=== PATIENT | female | born 1990 | race Two or more races ===

== ENCOUNTER 2016-07-21 20:14 | Emergency (ER) | payer MEDICAID, OTHER ==
[~2016-07-21] VITALS: Ht 162.6 cm; Wt 69.4 kg
[2016-07-21 21:19] VITALS: BP 105/68
[2016-07-21 21:41] LABS: Basophils # (auto) 0 uL; Basophils % (auto) 0.3 % (0.0-2.0); Eosinophils # (auto) 0.2 uL; Eosinophils % (auto) 3.1 % (0.0-7.0); Hematocrit 34.9 % (36.0-46.0); Hemoglobin 11.4 g/dL (12.2-16.2); Lymphocytes # (auto) 1.9 uL; Lymphocytes % (auto) 23.4 % (10.0-50.0); Mean Corpuscular Hemoglobin 27.3 pg (28.0-32.0); Mean Corpuscular Hgb Conc. 32.7 g/dL (32.0-36.0); Mean Corpuscular Volume 83.3 fL (80.0-100.0); Mean Platelet Volume 6.6 fL (7.4-10.4); Monocytes # (auto) 0.5 uL; Monocytes % (auto) 6.7 % (0.0-12.0); Neutrophils # (auto) 5.3 uL; Neutrophils % (auto) 66.5 % (37.0-80.0); Platelet Count (auto) 302 10^3/uL (140-450); Red Cell Distribution Width 13.5 % (11.6-16.0)
[2016-07-21 21:52] LABS: INR 0.94 (0.9-1.15); Partial Thromboplastin Time 25.1 sec (22.64-33.71); Prothrombin Time 9.7 sec (9.37-12.3)
[2016-07-21 22:00] LABS: Albumin 2.8 g/dL (3.4-5.0); Potassium 3.8 mmol/L (3.5-5.1)
[2016-07-21 22:04] LABS: BUN/Creatinine Ratio 16.2; Calcium 8.1 mg/dL (8.5-10.1)
[2016-07-21 22:06] LABS: Bilirubin, Total 0.2 mg/dL (0.2-1.0); Total Protein 6.8 g/dL (6.4-8.2)
== END 2016-07-21 22:40 | disposition home or self-care (01) ==
LOC: ER 20:16
DX: O26.892 Other specified pregnancy related conditions, second trimester (principal); S30.0XXA Contusion of lower back and pelvis, initial encounter; R10.32 Left lower quadrant pain; W10.9XXA Fall (on) (from) unspecified stairs and steps, initial encounter; Y93.89 Activity, other specified; Y99.8 Other external cause status; Y92.89 Other specified places as the place of occurrence of the external cause; Z3A.17 17 weeks gestation of pregnancy
CPT/HCPCS: 36415; 76805; 80053; 84702; 85025; 85049; 85610; 85730

== ENCOUNTER 2018-03-07 11:24 | Emergency (ER) | payer MEDICAID ==
[~2018-03-07] VITALS: Ht 162.6 cm; Wt 62.6 kg
[2018-03-07 11:34] VITALS: BP 111/49
[2018-03-07 13:04] LABS: Urine Bacteria NONE SEEN /hpf (None Seen); Urine Blood 2+ /uL (Negative); Urine Mucus FEW (None Seen); Urine Specific Gravity 1.023 (1.001-1.035); Urine WBC 3 /hpf (0 - 5)
== END 2018-03-07 13:31 | disposition home or self-care (01) ==
LOC: ER 11:24
DX: N93.9 Abnormal uterine and vaginal bleeding, unspecified (principal); Z32.02 Encounter for pregnancy test, result negative
CPT/HCPCS: 36415; 81001; 84702

== ENCOUNTER 2018-12-16 15:30 | Inpatient (IN) | payer MEDICAID | END 2018-12-18 10:55 | disposition home or self-care (01) | LOC: LDRP 15:30 | PROC: 10E0XZZ Delivery of Products of Conception, External Approach (ICD-10-PCS; principal; ~2018-12-16) | PROC: 0HQ9XZZ Repair Perineum Skin, External Approach (ICD-10-PCS; ~2018-12-16) | PROC: 0KQM0ZZ Repair Perineum Muscle, Open Approach (ICD-10-PCS; ~2018-12-16) | DX: O42.90 Premature rupture of membranes, unspecified as to length of time between rupture and onset of labor, unspecified weeks of gestation (principal); Z37.0 Single live birth; Z3A.39 39 weeks gestation of pregnancy ==

== ENCOUNTER → 2020-09-29 | Outpatient (CLI) | payer MEDICAID ==
[~2020-09-29] MED LIST: PREN-96 PO
== END | disposition home or self-care (01) ==
LOC: Rad HDHVI 14:04
PROVIDERS: ATTEND Internal Medicine
DX: I08.8 Other rheumatic multiple valve diseases (principal); R07.89 Other chest pain
CPT/HCPCS: 93306

== ENCOUNTER → 2020-10-17 | Outpatient (CLI) | payer MEDICAID ==
[~2020-10-17] VITALS: Ht 162.6 cm; Wt 59.9 kg
== END | disposition home or self-care (01) ==
LOC: Rad HDHVI 08:23
PROVIDERS: ATTEND Internal Medicine
DX: I10 Essential (primary) hypertension (principal); R07.9 Chest pain, unspecified; Z82.49 Family history of ischemic heart disease and other diseases of the circulatory system
CPT/HCPCS: 93017

== ENCOUNTER 2024-04-30 11:54 | Observation (INO) | payer MEDICAID | END 2024-04-30 14:38 | disposition home or self-care (01) | LOC: LDRP 12:30 | PROVIDERS: ADMIT Obstetrics & Gynecology; ATTEND Obstetrics & Gynecology | DX: O69.81X0 Labor and delivery complicated by cord around neck, without compression, not applicable or unspecified (principal); Z3A.39 39 weeks gestation of pregnancy | CPT/HCPCS: 59025; 76818; 81002; G0378 ==

== ENCOUNTER 2024-05-04 10:08 | Inpatient (IN) | payer MEDICAID ==
[~2024-05-04] VITALS: Ht 162.6 cm; Wt 79.4 kg
[~2024-05-04 10:08] MED LIST changes: +BUTORPHANOL TARTRATE 2 MG/1 ML VIAL IV PRN; +LIDOCAINE 2%HCL (LOCAL ANESTH.) INJ 20ML MDV IJ PRN
[2024-05-04 10:55] LABS: Basophils # (auto) 0 10 ^3/uL (0-0.2); Basophils % (auto) 0.3 % (0.0-2.0); Eosinophils # (auto) 0.2 10 ^3/uL (0-0.8); Eosinophils % (auto) 4.8 % (0.0-7.0); Hematocrit 32.6 % (36.0-46.0); Hemoglobin 10.9 g/dL (12.2-16.2); Lymphocytes # (auto) 1.1 10 ^3/uL (0.4-5.4); Lymphocytes % (auto) 22.6 % (10.0-50.0); Mean Corpuscular Hemoglobin 27.1 pg (28.0-32.0); Mean Corpuscular Hgb Conc. 33.6 g/dL (32.0-36.0); Mean Corpuscular Volume 80.9 fL (80.0-100.0); Monocytes # (auto) 0.2 10 ^3/uL (0-1.3); Monocytes % (auto) 4.8 % (0.0-12.0); Neutrophils # (auto) 3.4 10 ^3/uL (1.6-8.6); Neutrophils % (auto) 67.5 % (37.0-80.0); Platelet Count (auto) 208 10^3/uL (140-450); Red Blood Cells 4.03 10^6/uL (4.0-5.20); Red Cell Distribution Width 14.5 % (11.8-14.3)
[2024-05-04 11:11] LABS: Alanine Aminotransferase 9 U/L (7-40); Albumin 3.6 g/dL (3.2-4.8); Alkaline Phosphatase 115 U/L (46-116); Anion Gap 7 (5-15); Aspartate Aminotransferase 14 U/L (13-40); BUN/Creatinine Ratio 10.4 (10.0-20.0); Bilirubin, Total 0.4 mg/dL (0.2-1.0); Blood Urea Nitrogen < 5 mg/dL (9-23); Calcium 8.7 mg/dL (8.7-10.4); Carbon Dioxide 22 mmol/L (20-31); Chloride 109 mmol/L (98-107); Glucose 92 mg/dL (74-106); Potassium 3.6 mmol/L (3.5-5.1); Sodium 138 mmol/L (136-145)
[2024-05-04 11:13] LABS: INR 0.92 (0.9-1.15); Partial Thromboplastin Time 23.9 SEC (24.5-34.5); Prothrombin Time 9.8 sec (9.3-11.8)
[2024-05-04 11:30] LABS: Urine Bacteria FEW /hpf (None Seen); Urine Blood Negative /uL (Negative); Urine Clarity Turbid (Clear); Urine Color Yellow (Yellow); Urine Mucus FEW (None Seen); Urine Protein, UAD TRACE (Negative); Urine Specific Gravity 1.022 (1.001-1.035); Urine Urobilinogen Normal (Negative); Urine WBC 99 /hpf (0 - 5)
[2024-05-04 11:56] LABS: Amphetamine Screen, Urine Neg (NEGATIVE); Barbiturate Scree,Urine Neg (NEGATIVE); Benzodiazephine Screen, Urine Neg (NEGATIVE); Cannabinoid Screen, Urine Neg (NEGATIVE); Cocaine Screen, Urine Neg (NEGATIVE); Opiate Scree,Urine Neg (NEGATIVE); Phencyclidine Screen, Urine Neg (NEGATIVE)
[2024-05-04] MEDS: miSOPROStol 50 MCG per PRE-CUT 1/2 TAB PO PRN (12:41)
[2024-05-04] MEDS: LACTATED RINGER'S 1,000 ML IV SCH (12:45)
--- NOTE | 2024-05-04 12:46 | DVHHP2 ---
OB CC & HPI Date Date of Admission: May 04, 2024 Patient Identification: : 5 Para: 3 EDC: May 02, 2024 EGA: 40.2wks Chief Complaints: Reason for admission: induction of labor Indication for induction: post dates (NCx1) History of Present Complaints 34yo IUP@40.2wks presents for scheduled IOL for post dates/NCx1 per Dr. Rangel Denies UCs/LOF/VB/DAMIAN/vision changes/RUQ pain. Endorses +FM. PNC: Routine PNC at [facility] OB, adequate visits, PNC uncomplicated. GTT wnl, dating based on LMP c/w 12wk sono, GBS positive. OB hx: x3, uncomplicated and SABx1 Past Medical History Cardiac: No pertinent Hx Pulmonary: Asthma (as a child, denies using an inhaler as an adult) Central Nervous System: No pertinent Hx GI: No pertinent Hx Hemotology/Oncology: No pertinent Hx Hepatobiliary: No pertinent Hx Psychiatric: No pertinent Hx Musculoskeletal: No pertinent Hx Rheumotologic: No pertinent Hx Infectious Disease: No peritnent Hx ENT: No pertinent Hx Renal/: No pertinent Hx Endocrine: No pertinent Hx Dermatology: No pertinent Hx Past Surgical History: No pertinent Hx OB History OB History Care: Good Care Ultrasounds: Normal mid trimester US Obstetrical Complications: None Medical Complications: None Allergies: Coded Allergies: NO KNOWN ALLERGIES (Unverified , 07/21/16) Allergies NKDA Home Meds Reported Medications Vit W/ Ferrous Fumara ( One Daily) Daily Tab, 1 TAB PO DAILY, #90 TAB 3 Refills 12/16/18 Home Meds PNV Current Medications Current Medications Medications (Trade) Dose Ordered Sig/Lele Route PRN Reason Start Time Stop Time Status Last Admin Lactated Ringer's 1,000 ml @ 125 mls/hr Q8H IV 05/04/24 10:00 05/04/24 12:45 Penicillin G Potassium [id number] units/Dextrose 50 ml @ 100 mls/hr Q4H IV 05/04/24 14:00 Angelita Ponce (T[place]monster) 1 pad PRN PRN TOP PERINEAL AREA DISCOMFORT 05/04/24 10:00 Sodium Lauryl Sulfate (Phisoderm) 240 ml PRN PRN TOP PERINEAL AREA DISCOMFORT 05/04/24 10:00 Benzocaine (Dermoplast) 1 applic PRN PRN TOP PERINEAL AREA DISCOMFORT 05/04/24 10:00 Butorphanol Tartrate (Stadol Injection) 1 mg Q4HPRN PRN IV MODERATE PAIN (4-6 PAIN SCALE) 05/04/24 10:00 Butorphanol Tartrate (Stadol Injection) 2 mg Q4HPRN PRN IV SEVERE PAIN (7-10 PAIN SCALE) 05/04/24 10:00 Misoprostol (Cytotec) 50 mcg Q4HPRN PRN PO CERVICAL RIPENING 05/04/24 10:00 05/04/24 12:41 Lidocaine HCl (Xylocaine) 20 ml ONCE PRN IJ PERINEAL AREA DISCOMFORT 05/04/24 10:00 Family & Social History Family/Social History Past Family/Social History: denies Blood Type: B+ Rubella: not immune RPR/VDRL: Negative GBS Status: Positive HBsAG: Negative Review of Systems Constitutional: No symptom reported Ears, Nose, & Throat: No symptom reported Eyes: No symptom reported Pulmonary/Respiratory: No symptom reported Cardiovascular: No symptom reported Gastrointestinal: No symptom reported Genitourinary: No symptom reported Musculoskeletal: No symptom reported Skin: No symptom reported Psychiatric: No symptom reported Endocrine: No symptom reported Hemotologic/Lymphatic: No symptom reported OB Admission Exam Physical Exam Vitals: VSS, see chart HEENT: TMs Normal, Fontanelles Normal, Nasal Mucosa Normal, Eyes non-injected, Oropharynx Normal, PERRLA, Moist Membranes, EOMI Heart: Rhythm Normal Lungs: Clear Abdomen: Gravid Extremities: Normal Reflexes: Normal Pelvic Exam: SVE by RN: 1/thick/high, vertex EFW by Kat: 3500g EFW via sono in OB office 2 weeks ago was 7lbs 10oz Membranes: Intact Heart Rate: 130's Accelerations: Accelerations Present Decelerations: No Decelerations Correction Variability: Average (6-25) Contractions on Admission: >10 Minutes Apart Intensity: Mild OB Plan Plan Admitting Diagnosis: induction of labor for post dates/NCx1 Plan: Induction Induction Methd: Misoprostol protocol Other Plan: A: 34yo IUP@40.2wks Induction of Labor Category I EFM Intact Membranes GBS positive Rubella Non-Immune P: Admit to L&D Informed consent obtained Discussed risks, benefits, alternatives of starting IOL with PO cytotec. Pt consents to IOL with PO cytotec. monitoring per order Routine labs ordered Pain mgmt PRN Frequent position changes in and out of bed encouraged Limit SVE unless necessary Intrauterine resuscitation PRN Anticipate CNM will consult with RUPESH Neves CNM May 04, 2024 12:46
[2024-05-04] MEDS ORDERED: PENICILLIN G POTASSIUM 2,500,000 UNITS in D5W 5% 50 ML IV SCH (14:00)
--- NOTE | 2024-05-04 17:43 | DVHPN2 ---
CNM Labor Progress Note Date and Time Seen Date Seen: May 04, 2024 Time Seen: 17:19 Subjective Patient reports: Feels worse Subjective Comment Pt consents to FB placement for cervical ripening. Objective Vital Signs VSS, see chart Monitoring Method Monitoring Method: External Heart Rate Heart Rate Baseline: 150 Heart Rate Variability: Moderate Presence of FHR Accelerations: Yes Presence of FHR Decelerations: No Are all 5 Components of the FH: Yes Contractions Contractions Frequency: Other (3 UCs in 10 minutes) Duration of Contraction: 80 Contractions Intensity: Moderate Contractions Resting Tone: Relaxed Membranes Membranes: Intact Vaginal Exam Vag Exam Deferred: No (FB placed for cervical ripening with 60ml NS) Vaginal Exam Dilation: 3 Vaginal Exam Effacement: 60 Vaginal Exam Station: -2 Vaginal Exam Presentation: VTX Vaginal Exam Show: Small Medications Medications - Pitocin: No Medications - Pain Medications: PRN Medication - Epidural: No Medication - Other cytotec PO x1 given thus far Lab Results Lab Results Vital Signs Date Time Temp Pulse Resp B/P (MAP) Pulse Ox O2 Delivery O2 Flow Rate FiO2 05/04/24 18:11 105/65 Current Medications Medications (Trade) Dose Ordered Sig/Lele Start Time Stop Time Status Last Admin Dose Admin Lactated Ringer's 1,000 ml @ 125 mls/hr Q8H 05/04/24 10:00 05/04/24 18:19 125 MLS/HR Penicillin G Potassium 50 ml @ 100 mls/hr ONCE ONCE 05/04/24 10:00 05/04/24 11:44 DC 05/04/24 19:05 100 MLS/HR Penicillin G Potassium [id number] units/Dextrose 50 ml @ 100 mls/hr Q4H 05/04/24 14:00 Angelita Ponce (Tucks) 1 pad PRN PRN 05/04/24 10:00 Sodium Lauryl Sulfate (Phisoderm) 240 ml PRN PRN 05/04/24 10:00 Benzocaine (Dermoplast) 1 applic PRN PRN 05/04/24 10:00 Butorphanol Tartrate (Stadol Injection) 1 mg Q4HPRN PRN 05/04/24 10:00 Butorphanol Tartrate (Stadol Injection) 2 mg Q4HPRN PRN 05/04/24 10:00 Misoprostol (Cytotec) 50 mcg Q4HPRN PRN 05/04/24 10:00 05/04/24 12:41 50 MCG Lidocaine HCl (Xylocaine) 20 ml ONCE PRN 05/04/24 10:00 Naloxone HCl (Narcan) 0.2 mg PRN ONCE 05/04/24 17:45 05/04/24 17:46 DC Ephedrine Sulfate (ePHEDrine SULFATE) 10 mg PRN ONCE 05/04/24 17:45 05/04/24 17:46 DC Fentanyl Citrate 100 mcg ONCE ONCE 05/04/24 17:45 05/04/24 17:46 DC 05/04/24 18:11 100 MCG Lactated Ringer's 1,000 ml @ 1,000 mls/hr Q1H ONCE 05/04/24 17:45 05/04/24 18:44 DC Ephedrine Sulfate (ePHEDrine SULFATE) 10 mg PRN ONCE 05/04/24 18:00 05/04/24 18:24 DC Fentanyl Citrate 100 mcg ONCE ONCE 05/04/24 18:00 05/04/24 18:24 DC Lidocaine/ Epinephrine (Xylocaine 1%-Mpf/ Epinephrine 1:200,000) 30 ml PRN ONCE 05/04/24 18:00 05/04/24 18:24 DC Naloxone HCl (Narcan) 0.2 mg PRN ONCE 05/04/24 18:00 05/04/24 18:27 DC Ephedrine Sulfate (ePHEDrine SULFATE) 10 mg PRN ONCE 05/04/24 18:00 05/04/24 18:24 DC Laboratory Tests Test 05/04/24 10:15 05/04/24 10:10 Range/Units White Blood Count 5.0 4.4-10.8 10^3/uL Red Blood Count 4.03 4.0-5.20 10^6/uL Hemoglobin 10.9 L 12.2-16.2 g/dL Hematocrit 32.6 L 36.0-46.0 % Mean Corpuscular Volume 80.9 80.0-100.0 fL Mean Corpuscular Hemoglobin 27.1 L 28.0-32.0 pg Mean Corpuscular Hemoglobin Concent 33.6 32.0-36.0 g/dL Red Cell Distribution Width 14.5 H 11.8-14.3 % Platelet Count 208 140-450 10^3/uL Mean Platelet Volume 6.8 L 6.9-10.8 fL Neutrophils (%) (Auto) 67.5 37.0-80.0 % Lymphocytes (%) (Auto) 22.6 10.0-50.0 % Monocytes (%) (Auto) 4.8 0.0-12.0 % Eosinophils (%) (Auto) 4.8 0.0-7.0 % Basophils (%) (Auto) 0.3 0.0-2.0 % Neutrophils # (Auto) 3.4 1.6-8.6 10 ^3/uL Lymphocytes # (Auto) 1.1 0.4-5.4 10 ^3/uL Monocytes # (Auto) 0.2 0-1.3 10 ^3/uL Eosinophils # (Auto) 0.2 0-0.8 10 ^3/uL Basophils # (Auto) 0 0-0.2 10 ^3/uL Nucleated Red Blood Cells 0.0 % Prothrombin Time 9.8 9.3-11.8 sec Prothrombin Time INR 0.92 0.9-1.15 Activated Partial Thromboplast Time 23.9 L 24.5-34.5 SEC Sodium Level 138 136-145 mmol/L Potassium Level 3.6 3.5-5.1 mmol/L Chloride Level 109 H 98-107 mmol/L Carbon Dioxide Level 22 20-31 mmol/L Anion Gap 7 5-15 Blood Urea Nitrogen < 5 L 9-23 mg/dL Creatinine 0.48 L 0.550-1.02 mg/dL Glomerular Filtration Rate Calc 127 >90 mL/min BUN/Creatinine Ratio 10.4 10.0-20.0 Serum Glucose 92 74-106 mg/dL Calcium Level 8.7 8.7-10.4 mg/dL Total Bilirubin 0.4 0.2-1.0 mg/dL Aspartate Amino Transferase (AST) 14 13-40 U/L Alanine Aminotransferase (ALT) 9 7-40 U/L Alkaline Phosphatase 115 46-116 U/L Total Protein 6.0 5.7-8.2 g/dL Albumin 3.6 3.2-4.8 g/dL Rapid Plasma Reagin Pending Treponema pallidum Ab (TP-PA) Pending Hepatitis B Surface Antigen Negative Negative Hepatitis C Antibody Negative Negative HIV (1&2) Antibody Negative Negative Urine Color Yellow Yellow Urine Clarity Turbid H Clear Urine pH 6.0 5.0-9.0 Urine Specific [place] 1.022 1.001-1.035 Urine Protein Trace H Negative Urine Ketones 1+ H Negative Urine Blood Negative Negative /uL Urine Nitrite Negative Negative Urine Bilirubin Negative Negative Urine Urobilinogen Normal Negative mg/dL Urine Leukocyte Esterase 3+ Negative /uL Urine RBC 3 0 - 4 /hpf Urine WBC 99 0 - 5 /hpf Urine Squamous Epithelial Cells Few <5 /hpf Urine Bacteria Few H None Seen /hpf Urine Mucus Few None Seen Urine Glucose Normal Normal mg/dL Urine Opiates Screen Neg NEGATIVE Urine Fentanyl Screen Neg NEGATIVE Urine Barbiturates Screen Neg NEGATIVE Urine Phencyclidine Screen Neg NEGATIVE Urine Amphetamines Screen Neg NEGATIVE Urine Benzodiazepines Screen Neg NEGATIVE Urine Cocaine Screen Neg NEGATIVE Urine Cannabinoids Screen Neg NEGATIVE Assessment Assessment 34yo IUP@40.2wks Induction of Labor Category I EFM Intact Membranes GBS positive Rubella Non-Immune Plan Plan RN is to apply traction to heredia balloon q1hr and notify CNM when it falls out. Start IV PCN for GBS treatment. monitoring per order Pain mgmt PRN Frequent position changes in and out of bed encouraged Limit SVE unless necessary Intrauterine resuscitation PRN Anticipate CNM will consult with Dr. Rangel PRN Plan discussed with: Patient RUPESH CROSS CNM May 04, 2024 17:43
[2024-05-04] MEDS ORDERED: NALOXONE HCL 0.4 MG/ML VIAL IV ONE ×3 (17:45→18:00)
[2024-05-04] MEDS ORDERED: LACTATED RINGER'S 1,000 ML IV ONE (17:45)
--- NOTE | 2024-05-04 17:48 | EPIDURAL ---
Anesthesia Procedural Note - Epidural Date: May 04, 2024 Informed consent obtained?: Yes Medication Administered: Fentanyl 100 mcg Medication Administered: ePHEDrine 5 mg IV Sterile prept drape: Yes Spinal level of insertion: L2-L3 Test dose of lidocaine & Epine: Negative Infusion started: Yes Start time: 17:39 End time: 18:35 STEWART ROD MD May 04, 2024 17:48
[2024-05-04] MEDS ORDERED: LIDOCAINE 1%-Mpf/Epinephrine 1:200,000 30ml VIAL IJ ONE (18:00)
[2024-05-04] MEDS ORDERED: fentaNYL CITRATE 100 MCG/2 ML VL IV ONE (18:00)
[2024-05-04] MEDS ORDERED: ePHEDrine SULFATE 50 MG/ML AMP IV ONE (18:00)
[2024-05-04] MEDS: fentaNYL CITRATE 100 MCG/2 ML VL IV ONE (18:11)
[2024-05-04] MEDS: LIDOCAINE HCL 2 %PF INJ 10ML AMP IJ ONE (18:13)
[2024-05-04] MEDS: ROPIVACAINE HCL 200 ML ONE (18:17)
[2024-05-04] MEDS: PENICILLIN G POT 5MIL/D5 50ML 50 ML IV ONE (19:05)
[2024-05-04] MEDS: ePHEDrine SULFATE 50 MG/ML AMP IV ONE ×2 (21:36→22:07)
[2024-05-04] MEDS: ONDANSETRON HCL 4 MG/2 ML VIAL IV PRN (21:37)
[2024-05-04] MEDS ORDERED: LACT. RINGERS/OXYTOCIN 20UNITS 500 ML IV ONE (23:00)
[2024-05-04] MEDS ORDERED: TERBUTALINE SULFATE 1 MG/ML 1ML VIAL SC PRN (23:00)
[2024-05-04] MEDS: OXYTOCIN 20 UNT in SODIUM CHLORIDE 0.9% 1,000 ML IV ONE (23:45)
--- NOTE | 2024-05-04 23:46 | LDN2 ---
Labor and Delivery Note Date 05/04/24 Age 34 5 Para now 4 AB sab x1 EDC 05/02/24 EGA 40.2wks Diagnosis IOL for post dates and NCx1 then Vaginal Delivery: VTX Vacuum Assisted: No Placenta: Spontaneous Sex: Female Weight pending Apgars 8/9 Nuchal Cord Present: Yes (loose NCx1) Nuchal Cord Transected: No Amniotic Fluid: Clear Anesthesia epidural Episiotomy: No Extension: No Lacerations: No Repaired with n/a EBL QBL 250ml Complications none Conditions stable Brim Raiser Somu Delivery Summary At 2307 this 34yo now delivered a viable Female by w/ APGARS 8/9. OSMAN with loose Nuchal x1 with cord reduced after . Infant placed skin to skin on pts chest. Intact 3-vessel cord circummarginate placenta delivered spontaneously, Garcia marginal cord insertion noted. Pitocin IV bolus started. Placenta sent to pathology. Cord clamped and cut after pulsation ceased. Cord blood not collected, maternal blood type B+. Patient had epidural anesthesia. Cervix/vagina inspected (intact) and intact perineum/labia. Fundus at U, firm, midline, and light lochia. QBL 250ml. VSS. Count correct x2. Patient to care and baby to couplet care, both stable. RUPESH CROSS CNM May 04, 2024 23:46
[2024-05-04] MEDS: LACT. RINGERS/OXYTOCIN 20UNITS 1,000 ML IV ONE (23:56)
[2024-05-05] MEDS: PHISODERM TOP SOLN 240ML BTL TOP PRN (00:23)
[2024-05-05] MEDS: DERMOPLAST 60ML BOTTLE TOP PRN (00:23)
[2024-05-05] MEDS: WITCH HAZEL-GLYCERIN PAD TOP PRN (00:23)
[2024-05-05] MEDS ORDERED: ONDANSETRON HCL 4 MG/2 ML VIAL IV PRN (00:45)
[2024-05-05] MEDS ORDERED: ACETAMINOPHEN 325 MG TAB PO PRN (00:45)
--- NOTE | 2024-05-05 01:00 | DVHPN2 ---
Progress Note Date Seen: May 05, 2024 Subjective S: Pt denies lightheaded/dizziness/pain, has not ambulated yet, due to void, vital signs Vital Sign Date Time Temp Pulse Resp B/P (MAP) Pulse Ox O2 Delivery O2 Flow Rate FiO2 05/04/24 18:11 105/65 medications Current Medications Medications Dose Ordered Sig/Lele Route Start Time Stop Time Status Last Admin Dose Admin Lactated Ringer's 1,000 ml @ 125 mls/hr Q8H IV 05/04/24 10:00 05/04/24 18:19 125 MLS/HR Penicillin G Potassium [id number] units/Dextrose 50 ml @ 100 mls/hr Q4H IV 05/04/24 14:00 Angelita Ponce 1 pad PRN PRN TOP 05/04/24 10:00 05/05/24 00:23 1 PAD Sodium Lauryl Sulfate 240 ml PRN PRN TOP 05/04/24 10:00 05/05/24 00:23 240 ML Benzocaine 1 applic PRN PRN TOP 05/04/24 10:00 05/05/24 00:23 1 APPLIC Butorphanol Tartrate 1 mg Q4HPRN PRN IV 05/04/24 10:00 Butorphanol Tartrate 2 mg Q4HPRN PRN IV 05/04/24 10:00 Misoprostol 50 mcg Q4HPRN PRN PO 05/04/24 10:00 05/04/24 12:41 50 MCG Lidocaine HCl 20 ml ONCE PRN IJ 05/04/24 10:00 Ondansetron HCl 4 mg Q4HPRN PRN IV 05/04/24 20:30 05/04/24 21:37 4 MG Terbutaline Sulfate 0.25 mg ONCE PRN SC 05/04/24 23:00 Acetaminophen 650 mg Q4HP PRN PO 05/05/24 00:45 Ondansetron HCl 4 mg Q4HP PRN IV 05/05/24 00:45 Docusate Sodium 200 mg HS PO 05/05/24 22:00 Ibuprofen 800 mg Q6HR PO 05/05/24 06:00 laboratory and microbiology Laboratory Tests 05/04/24 10:15 Test 05/04/24 10:15 Range/Units Serum Glucose 92 74-106 mg/dL Objective O: VSS Chest: heart sounds normal and lung sounds clear bilaterally Abd: soft, non-tender, fundus at U/firm/midline, active bowel sounds, no rebound or guarding Perineum: intact, no erythema/edema noted Ext: Non-tender, No edema, 2+ BLE DTRs Lochia: minimal See lab results Problems(with codes): (1) (normal spontaneous vaginal delivery) (2) Intact perineum Assessment/Plan A: 34yo now PPD#1 s/p P: Continue with routine PP care Plan discussed with: Patient RUPESH CROSS CN May 05, 2024 01:00
[2024-05-05 03:30] VITALS: BP 99/56; PULSE 82; RESP 16; TEMP 99.1; O2SAT 95
[2024-05-05] MEDS: ePHEDrine SULFATE 50 MG/ML AMP IV ONE (04:13)
[2024-05-05] MEDS: LACT. RINGERS/OXYTOCIN 20UNITS 500 ML IV ONE (04:14)
[2024-05-05 05:08] LABS: RPR Non Reactive (Non Reactive)
[2024-05-05] MEDS: IBUPROFEN 800 MG TAB PO SCH (05:32)
[2024-05-05 06:44] VITALS: BP 97/50; PULSE 67; RESP 16; TEMP 98.5; O2SAT 98
[2024-05-05 07:30] LABS: Basophils # (auto) 0 10 ^3/uL (0-0.2); Eosinophils # (auto) 0.1 10 ^3/uL (0-0.8); Lymphocytes # (auto) 1.1 10 ^3/uL (0.4-5.4); Mean Corpuscular Hgb Conc. 33.2 g/dL (32.0-36.0); Monocytes # (auto) 0.6 10 ^3/uL (0-1.3)
[2024-05-05 07:34] LABS: Basophils % (auto) 0.1 % (0.0-2.0); Eosinophils % (auto) 0.8 % (0.0-7.0); Hematocrit 31.8 % (36.0-46.0); Hemoglobin 10.5 g/dL (12.2-16.2); Lymphocytes % (auto) 12.9 % (10.0-50.0); Mean Corpuscular Hemoglobin 26.8 pg (28.0-32.0); Mean Corpuscular Volume 80.7 fL (80.0-100.0); Neutrophils # (auto) 6.6 10 ^3/uL (1.6-8.6); Neutrophils % (auto) 79.2 % (37.0-80.0); Platelet Count (auto) 177 10^3/uL (140-450); Red Blood Cells 3.94 10^6/uL (4.0-5.20); Red Cell Distribution Width 14.6 % (11.8-14.3); White Blood Cell 8.3 10^3/uL (4.4-10.8)
[2024-05-05 11:07] VITALS: BP 95/53; PULSE 75; RESP 17; TEMP 98.6; O2SAT 97
[2024-05-05 15:00] VITALS: BP 95/51; PULSE 71; RESP 16; TEMP 98.4; O2SAT 97
[2024-05-05 19:00] VITALS: BP 97/52; PULSE 78; RESP 16; RESP 52; TEMP 98.6; O2SAT 97
[2024-05-05] MEDS ORDERED: IBUP-1455 PO (20:48)
[2024-05-05] MEDS ORDERED: DOCU-265 PO (20:48)
[2024-05-05] MEDS ORDERED: FER325T PO (20:48)
[2024-05-05] MEDS: DOCUSATE SOD 100 MG CAP PO SCH (22:11)
[2024-05-05 23:00] VITALS: BP 96/55; PULSE 72; RESP 18; TEMP 97.8; O2SAT 97
[2024-05-06 03:00] VITALS: BP 93/55; PULSE 60; RESP 16; TEMP 97.6; O2SAT 96
--- NOTE | 2024-05-06 04:32 | DVHPN2 ---
Progress Note Date Seen: May 06, 2024 Subjective S: bleeding is less, eating food without issues, denies lightheaded/dizziness, pain well controlled with oral medications, no concerns with urinating, passing flatus, no BM yet, ambulating well, well vital signs Vital Sign Date Time Temp Pulse Resp B/P (MAP) Pulse Ox O2 Delivery O2 Flow Rate FiO2 05/06/24 03:00 97.6 60 16 93/55 (68) 96 97.6 05/05/24 19:15 Room Air Total Intake and Output 05/05/24 05/05/24 05/06/24 15:00 23:00 07:00 Output Total 700 ml Balance -700 ml medications Current Medications Medications Dose Ordered Sig/Lele Route Start Time Stop Time Status Last Admin Dose Admin Witch Rosario 1 pad PRN PRN TOP 05/04/24 10:00 05/05/24 00:23 1 PAD Sodium Lauryl Sulfate 240 ml PRN PRN TOP 05/04/24 10:00 05/05/24 00:23 240 ML Benzocaine 1 applic PRN PRN TOP 05/04/24 10:00 05/05/24 00:23 1 APPLIC Ondansetron HCl 4 mg Q4HPRN PRN IV 05/04/24 20:30 05/04/24 21:37 4 MG Acetaminophen 650 mg Q4HP PRN PO 05/05/24 00:45 Docusate Sodium 200 mg HS PO 05/05/24 22:00 05/05/24 22:11 200 MG Ibuprofen 800 mg Q6HR PO 05/05/24 06:00 05/05/24 19:07 800 MG laboratory and microbiology Laboratory Tests 05/05/24 07:02 05/04/24 10:15 Test 05/04/24 10:15 Range/Units Serum Glucose 92 74-106 mg/dL Objective O: VSS Chest: heart sounds normal and lung sounds clear bilaterally Abd: soft, non-tender, fundus at U/firm/midline, active bowel sounds, no rebound or guarding Perineum: intact , no erythema/edema noted Ext: Non-tender, No edema, 2+ BLE DTRs Lochia: minimal Laboratory Tests Test 05/04/24 10:10 05/04/24 10:15 05/05/24 07:02 Range/Units Urine Color Yellow Yellow Urine Clarity Turbid H Clear Urine pH 6.0 5.0-9.0 Urine Specific [place] 1.022 1.001-1.035 Urine Protein Trace H Negative Urine Ketones 1+ H Negative Urine Blood Negative Negative /uL Urine Nitrite Negative Negative Urine Bilirubin Negative Negative Urine Urobilinogen Normal Negative mg/dL Urine Leukocyte Esterase 3+ Negative /uL Urine RBC 3 0 - 4 /hpf Urine WBC 99 0 - 5 /hpf Urine Squamous Epithelial Cells Few <5 /hpf Urine Bacteria Few H None Seen /hpf Urine Mucus Few None Seen Urine Glucose Normal Normal mg/dL Urine Opiates Screen Neg NEGATIVE Urine Fentanyl Screen Neg NEGATIVE Urine Barbiturates Screen Neg NEGATIVE Urine Phencyclidine Screen Neg NEGATIVE Urine Amphetamines Screen Neg NEGATIVE Urine Benzodiazepines Screen Neg NEGATIVE Urine Cocaine Screen Neg NEGATIVE Urine Cannabinoids Screen Neg NEGATIVE White Blood Count 5.0 8.3 # 4.4-10.8 10^3/uL Red Blood Count 4.03 3.94 L 4.0-5.20 10^6/uL Hemoglobin 10.9 L 10.5 L 12.2-16.2 g/dL Hematocrit 32.6 L 31.8 L 36.0-46.0 % Mean Corpuscular Volume 80.9 80.7 80.0-100.0 fL Mean Corpuscular Hemoglobin 27.1 L 26.8 L 28.0-32.0 pg Mean Corpuscular Hemoglobin Concent 33.6 33.2 32.0-36.0 g/dL Red Cell Distribution Width 14.5 H 14.6 H 11.8-14.3 % Platelet Count 208 177 140-450 10^3/uL Mean Platelet Volume 6.8 L 6.7 L 6.9-10.8 fL Neutrophils (%) (Auto) 67.5 79.2 37.0-80.0 % Lymphocytes (%) (Auto) 22.6 12.9 10.0-50.0 % Monocytes (%) (Auto) 4.8 7.0 0.0-12.0 % Eosinophils (%) (Auto) 4.8 0.8 0.0-7.0 % Basophils (%) (Auto) 0.3 0.1 0.0-2.0 % Neutrophils # (Auto) 3.4 6.6 1.6-8.6 10 ^3/uL Lymphocytes # (Auto) 1.1 1.1 0.4-5.4 10 ^3/uL Monocytes # (Auto) 0.2 0.6 0-1.3 10 ^3/uL Eosinophils # (Auto) 0.2 0.1 0-0.8 10 ^3/uL Basophils # (Auto) 0 0 0-0.2 10 ^3/uL Nucleated Red Blood Cells 0.0 0.0 % Prothrombin Time 9.8 9.3-11.8 sec Prothrombin Time INR 0.92 0.9-1.15 Activated Partial Thromboplast Time 23.9 L 24.5-34.5 SEC Sodium Level 138 136-145 mmol/L Potassium Level 3.6 3.5-5.1 mmol/L Chloride Level 109 H 98-107 mmol/L Carbon Dioxide Level 22 20-31 mmol/L Anion Gap 7 5-15 Blood Urea Nitrogen < 5 L 9-23 mg/dL Creatinine 0.48 L 0.550-1.02 mg/dL Glomerular Filtration Rate Calc 127 >90 mL/min BUN/Creatinine Ratio 10.4 10.0-20.0 Serum Glucose 92 74-106 mg/dL Calcium Level 8.7 8.7-10.4 mg/dL Total Bilirubin 0.4 0.2-1.0 mg/dL Aspartate Amino Transferase (AST) 14 13-40 U/L Alanine Aminotransferase (ALT) 9 7-40 U/L Alkaline Phosphatase 115 46-116 U/L Total Protein 6.0 5.7-8.2 g/dL Albumin 3.6 3.2-4.8 g/dL Rapid Plasma Reagin Non reactive Non Reactive Treponema pallidum Ab (TP-PA) Pending Hepatitis B Surface Antigen Negative Negative Hepatitis C Antibody Negative Negative HIV (1&2) Antibody Negative Negative Vital Signs Date Time Temp Pulse Resp B/P (MAP) Pulse Ox O2 Delivery O2 Flow Rate FiO2 05/06/24 03:00 97.6 60 16 93/55 (68) 96 97.6 05/05/24 19:15 Room Air Problems(with codes): (1) Intact perineum (2) (normal spontaneous vaginal delivery) Assessment/Plan A: 34yo now PPD#2 s/p Anemia Rh+ Rubella Non-Immune Pain control with PO medications Bowel regimen P: D/C home today MMR vaccine ordered Rx sent to pharmacy precautions and preeclampsia warning signs reviewed F/U with [facility] OB office in 2 weeks Plan discussed with: Patient RUPESH CROSS CNM May 06, 2024 04:32
--- NOTE | 2024-05-06 04:33 | DVHDS2 ---
Obstetrics Discharge Summary Obstetrics Discharge Summary Date of Admission: May 04, 2024 Date of Discharge: May 06, 2024 Reason For Admission: Induction of Labor (post dates/NCx1) Procedures: NST Intrapartum Procedures: Spontaneous vaginal deliv Procedures: Hct/date: (05/05/24), Hgb/date: (05/05/24) Operative Complicat: None Discharge Diagnosis: Term -Delivered Discharge Information: Activity (as tolerated, no heavy lifting and nothing in the vagina for 6 weeks), Diet (Routine), Medications (Rx sent), Instructions (Routine), Discharge to (Home), Accompanied by (partner), Discarge date (05/06/24) RUPESH CROSS CNM May 06, 2024 04:33
[2024-05-06 07:00] VITALS: BP 106/58; PULSE 71; RESP 16; TEMP 98.2; O2SAT 96
[2024-05-06] MEDS ORDERED: MEASLES, MUMPS & RUBELLA VAC(MMRII) 0.5ML SC ONE (07:00)
[2024-05-06 11:00] VITALS: BP 106/50; PULSE 71; RESP 16; TEMP 98.1; O2SAT 96
[2024-05-06 15:54] VITALS: BP 108/61; PULSE 70; RESP 16; TEMP 98.6
== END 2024-05-06 15:54 | disposition home or self-care (01) | DRG 560 ==
LOC: LDRP 10:08
PROVIDERS: ADMIT Obstetrics & Gynecology; ATTEND Obstetrics & Gynecology
PROC: 10E0XZZ Delivery of Products of Conception, External Approach (ICD-10-PCS; principal; 2024-05-02)
PROC: 3E0R3BZ Introduction of Anesthetic Agent into Spinal Canal, Percutaneous Approach (ICD-10-PCS; 2024-05-02)
PROC: 00HU33Z Insertion of Infusion Device into Spinal Canal, Percutaneous Approach (ICD-10-PCS; 2024-05-02)
PROC: 3E0DXGC Introduction of Other Therapeutic Substance into Mouth and Pharynx, External Approach (ICD-10-PCS; 2024-05-02)
DX: O48.0 Post-term pregnancy (principal); Z37.0 Single live birth; O69.81X0 Labor and delivery complicated by cord around neck, without compression, not applicable or unspecified; Z3A.40 40 weeks gestation of pregnancy; O99.02 Anemia complicating childbirth; O99.824 Streptococcus B carrier state complicating childbirth
CPT/HCPCS: 36415; 59025; 59200; 59409; 62282; 80053; 80307; 81001; 85025; 85610; 85730; 86592; 86703; 86780; 86803; 86850; 86900; 86901; 87340; 94760; 96360; 96361; 96365; 96366; 96374; 96375; G0378; J2405; J2540; J2590; J7060

== ENCOUNTER → 2024-05-25 | Outpatient (CLI) | payer MEDICAID ==
[~2024-05-25] MED LIST changes: -BUTORPHANOL TARTRATE 2 MG/1 ML VIAL IV PRN; +DOCU-265 PO; +FER325T PO; +IBUP-1455 PO; -LIDOCAINE 2%HCL (LOCAL ANESTH.) INJ 20ML MDV IJ PRN
[2024-05-25 16:10] LABS: Basophils # (auto) 0 10 ^3/uL (0-0.2); Eosinophils # (auto) 0.5 10 ^3/uL (0-0.8); Hemoglobin 14.2 g/dL (12.2-16.2); Lymphocytes # (auto) 2.2 10 ^3/uL (0.4-5.4); Mean Corpuscular Volume 81.1 fL (80.0-100.0); White Blood Cell 5.8 10^3/uL (4.4-10.8)
[2024-05-25 16:12] LABS: Basophils % (auto) 0.2 % (0.0-2.0); Eosinophils % (auto) 8.1 % (0.0-7.0); Hematocrit 43.1 % (36.0-46.0); Lymphocytes % (auto) 37.3 % (10.0-50.0); Mean Corpuscular Hemoglobin 26.7 pg (28.0-32.0); Mean Corpuscular Hgb Conc. 32.9 g/dL (32.0-36.0); Monocytes # (auto) 0.3 10 ^3/uL (0-1.3); Neutrophils # (auto) 2.8 10 ^3/uL (1.6-8.6); Neutrophils % (auto) 48.4 % (37.0-80.0); Nucleated Red Blood Cells % 0.1 %; Platelet Count (auto) 285 10^3/uL (140-450); Red Blood Cells 5.31 10^6/uL (4.0-5.20); Red Cell Distribution Width 15.7 % (11.8-14.3)
[2024-05-25 16:32] LABS: % Iron Saturation 17.3 % (15-50)
[2024-05-25 16:35] LABS: Ferritin 16.6 ng/mL (10-291); Free T4 (Free Thyroxine) 1.02 ng/dL (0.89-1.76)
[2024-05-25 16:37] LABS: Folate (Folic Acid) 21.26 ng/mL (>5.38); T3 Total 1.43 ng/mL (0.60-1.81)
[2024-05-26 08:06] LABS: T3 Uptake 20 % (24-39); Thyroid Peroxidase (TPO) Ab 16 IU/mL (0-34)
[2024-05-26 10:06] LABS: Thyroglobulin Antibody <1.0 IU/mL (0.0-0.9)
== END | disposition home or self-care (01) ==
LOC: LAB 15:43
PROVIDERS: ATTEND Obstetrics & Gynecology
DX: N39.0 Urinary tract infection, site not specified
CPT/HCPCS: 36415; 82306; 82607; 82728; 82746; 83540; 83550; 84436; 84439; 84443; 84479; 84480; 85025; 86376; 86800